=== PATIENT | male | born 1975 | race Two or more races ===

== ENCOUNTER 2023-09-09 05:21 | Day surgery (SDC) | payer OTHER ==
[~2023-09-09] VITALS: Ht 172.7 cm; Wt 68.0 kg
[2023-09-09] MEDS ORDERED: METRONIDAZOLE/SODIUM CHLORIDE 500 MG/100 ML PIGGYBACK IV ONE ×2 (07:48→09:45)
[2023-09-09] MEDS ORDERED: CEFTRIAXONE SODIUM 2,000 MG VIAL ONE (07:48)
[2023-09-09] MEDS ORDERED: DIBUCAINE 15 GM OINT..GM. TUBE ONE (09:05)
[2023-09-09] MEDS ORDERED: HEMOSTATIC MATRIX 1 KIT KIT TOP ONE ×2 (09:05→10:00)
[2023-09-09] MEDS ORDERED: CEFTRIAXONE SODIUM 2,000 MG VIAL IV ONE (09:45)
[2023-09-09] MEDS ORDERED: BUPIVACAINE LIPOSOME/PF 266 MG/20 ML VIAL IJ ONE ×2 (09:48→10:00)
[2023-09-09] MEDS ORDERED: DIBUCAINE 30 GM TUBE RECTAL SCH (10:00)
[2023-09-09] MEDS ORDERED: TAMSULOSIN HCL 0.4 MG CAP PO STA (10:40)
[2023-09-09] MEDS ORDERED: PERCOCET 5-3251 EACH PO (10:44)
[2023-09-09] MEDS ORDERED: NEURONTIN300 MG PO (10:44)
[2023-09-09] MEDS ORDERED: CELECOXIB200 MG PO (10:45)
[2023-09-09] MEDS ORDERED: TAMS0.4C PO (11:34)
[2023-09-09] MEDS ORDERED: TAMSULOSIN HCL 0.4 MG CAP PO ONE (12:14)
== END 2023-09-09 16:05 | disposition home or self-care (01) ==
LOC: CIR.AMB 05:21
PROVIDERS: ATTEND Surgery
DX: K64.2 Third degree hemorrhoids (principal); K64.4 Residual hemorrhoidal skin tags; Z88.6 Allergy status to analgesic agent; I10 Essential (primary) hypertension

== ENCOUNTER 2024-09-10 13:23 | Inpatient (IN) | payer OTHER ==
[~2024-09-10] VITALS: Ht 231.1 cm; Wt 64.4 kg
[~2024-09-10 13:23] MED LIST: CELECOXIB200 MG PO; NEURONTIN300 MG PO; PERCOCET 5-3251 EACH PO; TAMS0.4C PO
[2024-09-10 14:37] LABS: HEMATOCRIT 38.2 % (39.0-48.0); HEMOGLOBIN 13.3 g/dL (13-16.00); MEAN CORPUSCULAR HEMOGLOBIN 30.6 pg (27.00-32.0); MEAN CORPUSCULAR HGB CONC 34.8 g/dl (32.0-36.0); PLATELET COUNT 214 K/uL (150-450); RED BLOOD COUNT 4.34 M/uL (4.00-6.00); RED CELL DISTRIBUTION WIDTH 13.3 % (11.5-14.5)
[2024-09-10 15:03] LABS: ALBUMIN 2.8 gm/dL (3.4-5.0); BILIRUBIN TOTAL 0.95 mg/dL (0.3-1.2); CALCIUM 8.2 mg/dL (8.5-10.1); CREATININE SERUM 0.84 mg/dL (0.70-1.30); GFR 96.33; GLOBULINA 3.6 G/DL (2.4-3.5); TOTAL PROTEIN 6.4 gm/dL (6.4-8.2)
[2024-09-10] MEDS ORDERED: KETOROLAC TROMETHAMINE 30 MG VIAL IU ONE (17:45)
[2024-09-10] MEDS ORDERED: 0.9 % SODIUM CHLORIDE 1,000 ML IV SCH (23:30)
[2024-09-10] MEDS ORDERED: KETOROLAC TROMETHAMINE 30 MG VIAL IU PRN (23:30)
[2024-09-10] MEDS ORDERED: ONDANSETRON HCL 4 MG in 0.9 % SODIUM CHLORIDE 50 ML IV PRN (23:45)
[2024-09-11] MEDS ORDERED: ACETAMINOPHEN 325 MG TABLET PO SCH
[2024-09-11] MEDS ORDERED: ACETAMINOPHEN 325 MG TABLET PO PRN
[2024-09-11 01:00] VITALS: BP 119/63; O2SAT 99
[2024-09-11 02:42] VITALS: BP 145/82; O2SAT 97
[2024-09-11] MEDS ORDERED: FAMOTIDINE/PF 20 MG/2 ML VIAL IV SCH (09:00)
[2024-09-11] MEDS ORDERED: CIPROFLOXACIN IN 5 % DEXTROSE 200 ML IV SCH (09:59)
[2024-09-11] MEDS ORDERED: METRONIDAZOLE/SODIUM CHLORIDE 100 ML IV SCH (09:59)
[2024-09-11 14:45] VITALS: BP 116/75; O2SAT 97
[2024-09-11] MEDS ORDERED: ACETAMINOPHEN 500 MG GEL..CAP PO PRN (15:15)
[2024-09-11 17:43] VITALS: BP 115/73; O2SAT 98
[2024-09-12 00:23] VITALS: BP 99/59; O2SAT 97
[2024-09-12 08:00] VITALS: BP 107/71; O2SAT 97
[2024-09-12 08:25] LABS: HEMOGLOBIN 13.5 g/dL (13-16.00); MEAN CELL VOLUME 89.1 fL (80.0-100.00); MEAN CORPUSCULAR HEMOGLOBIN 30.7 pg (27.00-32.0); MEAN CORPUSCULAR HGB CONC 34.5 g/dl (32.0-36.0); PLATELET COUNT 270 K/uL (150-450); RED BLOOD COUNT 4.38 M/uL (4.00-6.00); RED CELL DISTRIBUTION WIDTH 12.8 % (11.5-14.5)
[2024-09-12 09:25] LABS: BILIRUBIN TOTAL 0.86 mg/dL (0.3-1.2); CALCIUM 8.5 mg/dL (8.5-10.1); CREATININE SERUM 0.75 mg/dL (0.70-1.30); GFR 109.79; GLOBULINA 3.4 G/DL (2.4-3.5); POTASSIUM 4.1 mEq/L (3.5-5.1); TOTAL PROTEIN 6.4 gm/dL (6.4-8.2)
[2024-09-12 17:09] VITALS: BP 120/76; O2SAT 95
[2024-09-13 00:20] VITALS: BP 120/81; O2SAT 98
[2024-09-13 08:00] VITALS: BP 117/74; O2SAT 96
[2024-09-13 15:54] VITALS: BP 134/82; O2SAT 97
== END 2024-09-13 17:21 | disposition home or self-care (01) | DRG 390 ==
LOC: ER 13:26 → SURH 09-11 00:10
PROVIDERS: General Practice; Internal Medicine; ADMIT Student in an Organized Health Care Education/Training Program; ATTEND Student in an Organized Health Care Education/Training Program
PROC: BW21YZZ Computerized Tomography (CT Scan) of Abdomen and Pelvis using Other Contrast (ICD-10-PCS; principal; 2024-09-10)
DX: K56.699 Other intestinal obstruction unspecified as to partial versus complete obstruction (principal); K52.9 Noninfective gastroenteritis and colitis, unspecified